=== PATIENT | male | born 1995 | race Caucasian/White ===

== ENCOUNTER 2021-10-08 21:41 | Emergency (ER) | payer OTHER ==
[~2021-10-08] VITALS: Ht 180.3 cm; Wt 86.4 kg
[2021-10-08 21:47] VITALS: BP 131/73; TEMP 98.7
[2021-10-09] MEDS ORDERED: NORCO 325 MG-51 TAB PO (01:12)
[2021-10-09] MEDS ORDERED: CEPHALEXIN500 M1 PO (01:12)
[2021-10-09 01:33] VITALS: PULSE 68
== END 2021-10-09 01:33 | disposition home or self-care (01) ==
LOC: COL.ER 21:41
DX: S61.321A Laceration with foreign body of left index finger with damage to nail, initial encounter (principal); S56.424A Laceration of extensor muscle, fascia and tendon of left middle finger at forearm level, initial encounter; W31.2XXA Contact with powered woodworking and forming machines, initial encounter